=== PATIENT | female | born 2000 | race Caucasian/White ===

== ENCOUNTER 2019-07-24 09:41 | Emergency (ER) | payer BC ==
[2019-07-24 09:41] VITALS: BP 121/77
[2019-07-24] MEDS ORDERED: IV NORMAL SALINE 1000ML BAG 1,000 ML IV SCH (09:51)
[2019-07-24] MEDS ORDERED: fentaNYL PF VIAL 100 MCG/2 ML VIAL IV PRN (10:00)
[2019-07-24] MEDS ORDERED: LIDOCAINE 1%/EPI 1:100,000 20 ML VIAL. INJ ONE (10:00)
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
[2019-07-24 10:13] LABS: BASO # 0.1 x10^3/uL (0.0-0.2); BASO % 1 % (0-3); EOS # 0.3 x10^3/uL (0.0-0.7); EOS % 2 % (0-3); HEMATOCRIT 39.5 % (36.0-47.0); HEMOGLOBIN 13.4 g/dL (12.0-15.5); LYMPH # 3.1 x10^3/uL (1.0-4.8); LYMPH % 25 % (24-48); MEAN CORPUSCULAR HEMOGLOBIN 31 pg (25-35); MEAN CORPUSCULAR HGB CONC 34 g/dL (31-37); MEAN CORPUSCULAR VOLUME 92 fL (79-100); MONO # 0.7 x10^3/uL (0.0-1.1); MONO % 6 % (0-9); NEUT # 8.1 x10^3/uL (1.8-7.7); NEUT % 66 % (31-73); PLATELET COUNT 398 x10^3/uL (140-400); RED CELL DISTRIBUTION WIDTH 13.4 % (11.5-14.5); WHITE BLOOD COUNT 12.2 x10^3/uL (4.0-11.0)
[2019-07-24 10:17] LABS: BILIRUBIN,URINE NEGATIVE (NEG); CLARITY,URINE CLEAR; COLOR,URINE AMBER; NITRITE,URINE NEGATIVE (NEG); PH,URINE 7.5; PROTEIN,URINE 100 mg/dL (NEG-TRACE); UROBILINOGEN,URINE 0.2 mg/dL (0.2 mg/dL)
[2019-07-24 10:29] LABS: CALCIUM 10.2 mg/dL (8.5-10.1); CREATININE 1.4 mg/dL (0.6-1.0); GFR 47.5
--- NOTE | 2019-07-24 10:36 | RAD ---
EXAM: AP View of the chest DATE: 07/24/2019 10:07 AM INDICATION: Trauma COMPARISON: No Prior FINDINGS: Left port tip terminates over the distal SVC. The port may be disconnected from the associated tubing. The heart is not enlarged. Mediastinal and hilar contours are normal. No focal parenchymal airspace opacity. No pleural effusion or pneumothorax. IMPRESSION: Left chest port is seen although the port and associated tubing is likely disconnected. Lungs are otherwise clear. Electronically signed by: Mariano Mora MD (07/24/2019 10:33 AM) [facility]
[2019-07-24 10:37] LABS: BACTERIA,URINE 0 /HPF (0-FEW)
[2019-07-24 10:38] LABS: HYALINE CASTS, URINE MANY /HPF
[2019-07-24] MEDS ORDERED: IOHEXOL 300 MG/ML 100ML VIAL. ONE (10:39)
--- NOTE | 2019-07-24 10:39 | RAD ---
Indications: Trauma and pain 3 view study of the left wrist: No acute fracture or dislocation or lytic process is evident. The scaphoid bone appears intact. IMPRESSION: No acute fracture. 3 view right knee study: No acute fracture or dislocation or lytic process is seen. No joint effusion is seen radiographically. IMPRESSION: No acute fracture. Electronically signed by: Randal Lucero MD (07/24/2019 10:36 AM) [id number]
[2019-07-24] MEDS ORDERED: CONTRAST GIVEN. MC PRN (10:45)
[2019-07-24] MEDS ORDERED: IOHEXOL 300 MG/ML 100ML VIAL. IV ONE (10:45)
[2019-07-24 10:48] LABS: ALBUMIN 3.8 g/dL (3.4-5.0); ALBUMIN/GLOBULIN RATIO 0.9 (1.0-1.7); TOTAL BILIRUBIN 0.5 mg/dL (0.2-1.0)
--- NOTE | 2019-07-24 11:08 | RAD ---
EXAM: CT HEAD WITHOUT IV CONTRAST CLINICAL HISTORY: Trauma COMPARISON: None. TECHNIQUE: Routine CT of the head without contrast. Soft tissues and bone windows were reviewed. PQRS compliance statement - One or more of the following individualized dose reduction techniques were utilized for this study: 1. Automated exposure control 2. Adjustment of the mA and/or kV according to patient size 3. Use of iterative reconstruction technique FINDINGS: There is no evidence of hemorrhage, mass or extra-axial fluid collection. Jackson-white differentiation is maintained with no evidence of edema. There is no mass effect or shift of the intracranial structures. The ventricles, basilar cisterns and cortical sulci are normal in size and configuration for the patients stated age. The cerebellum and brainstem are unremarkable. The calvarium demonstrates no evidence of fracture or focal lesion. There is normal aeration of the visualized paranasal sinuses and mastoid air cells. The visualized portions of the orbits are normal. IMPRESSION: No evidence for acute intracranial process EXAM: CT CERVICAL SPINE WITHOUT IV CONTRAST CLINICAL HISTORY: Trauma COMPARISON: None available. TECHNIQUE: Helical CT of the cervical spine was performed. Axial, coronal and sagittal reformatted images were also performed. PQRS compliance statement - One or more of the following individualized dose reduction techniques were utilized for this study: 1. Automated exposure control 2. Adjustment of the mA and/or kV according to patient size 3. Use of iterative reconstruction technique FINDINGS: Vertebral body heights are preserved. Straightening of the normal cervical lordosis. No significant spondylolisthesis. No evidence for acute fracture. No significant central canal stenosis or neural foraminal narrowing. IMPRESSION: No acute fracture or subluxation. Electronically signed by: Mariano Mora MD (07/24/2019 11:05 AM) [facility]
--- NOTE | 2019-07-24 11:16 | RAD ---
EXAM: CT Chest, Abdomen and Pelvis with IV contrast CLINICAL HISTORY: Trauma COMPARISON: None. TECHNIQUE: Helical CT of the chest, abdomen and pelvis was performed following the administration of intravenous contrast. Axial, coronal and sagittal reformatted images were generated. ---PQRS compliance statement - One or more of the following individualized dose reduction techniques were utilized for this study: 1. Automated exposure control 2. Adjustment of the mA and/or kV according to patient size 3. Use of iterative reconstruction technique--- FINDINGS: Chest: Port-A-Cath tip terminates within the distal SVC. Heart is not enlarged. No pericardial effusion. No pleural effusion or pneumothorax. Groundglass opacities in the lower lobes likely atelectasis. No mediastinal or hilar lymphadenopathy. No axillary lymphadenopathy. Abdomen and Pelvis: No focal liver lesion. Spleen is unremarkable. Adrenal glands are normal. Pancreas is unremarkable. No focal renal lesion. No hydronephrosis. No hydroureter. Bladder is unremarkable. Moderate colonic stool content is seen. No small or large bowel dilatation. No evidence for bowel obstruction. Bones: No evidence for acute fracture. Osseous structures are grossly unremarkable. IMPRESSION: 1. No evidence for acute thoracic, abdominal or pelvic trauma. 2. Port-A-Cath is seen within the left chest. Electronically signed by: Mariano Mora MD (07/24/2019 11:13 AM) [facility]
--- NOTE | 2019-07-24 12:02 | NUR ---
Bacitracin applied to wounds.
[2019-07-24] MEDS ORDERED: BACITRACIN TOPICAL OINT PACKET. TP ONE ×2 (12:15→12:30)
[2019-07-24] MEDS ORDERED: HEPARIN PF 500 UNIT/5 ML DISP.SYRIN. IVP ONE (12:45)
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
--- NOTE | 2019-07-24 14:15 | EKG ---
[facility] [address] [place] [address] Test Date: 2019-07-24 Test Time: 10:06:18 Pat Name: THIAGO FLORES Department: Room: Gender: F Cst: : 2000 Requested By: TAYLA ARZATE Order Number: [id number] Reading MD: Measurements Intervals [place] Rate: 95 P: 0 MI: 142 QRS: 36 QRSD: 82 T: 44 QT: 390 QTc: 494 Interpretive Statements SINUS RHYTHM PROLONGED QT NO SPECIFIC ECG ABNORMALITIES RI6.01 No previous ECG available for comparison
== END 2019-07-24 13:45 | disposition home or self-care (01) ==
LOC: ER 09:41
DX: S81.011A Laceration without foreign body, right knee, initial encounter (principal); S30.1XXA Contusion of abdominal wall, initial encounter; S60.812A Abrasion of left wrist, initial encounter; S10.91XA Abrasion of unspecified part of neck, initial encounter; S40.212A Abrasion of left shoulder, initial encounter; R51 Headache; F31.9 Bipolar disorder, unspecified; V44.5XXA Car driver injured in collision with heavy transport vehicle or bus in traffic accident, initial encounter; Y93.89 Activity, other specified; Y92.488 Other paved roadways as the place of occurrence of the external cause; Y99.8 Other external cause status
CPT/HCPCS: 12002; 36415; 70450; 71045; 71260; 72125; 73110; 73562; 74177; 80053; 81001; 81025; 84484; 85025; 87086; 93005; 96374; 96375; 99285; J3010; J3490; J7030; Q9967

== ENCOUNTER 2019-08-04 17:34 | Emergency (ER) | payer BC ==
[~2019-08-04] VITALS: Ht 175.3 cm; Wt 93.9 kg
[2019-08-04 18:08] VITALS: BP 207/90
[2019-08-04] MEDS ORDERED: CEPH-264 PO (18:34)
--- NOTE | 2019-08-04 18:34 | PHYS DOC ---
Past Medical History Past Medical History: Bipolar Additional Past Medical Histor: hemochromatosis Alcohol Use: None Adult General Chief Complaint Chief Complaint: SUTURE/STAPLE REMOVAL HPI HPI Patient is a 19 year old Female who presents with Right knee sutures placed on July 24. Patient is here to have them removed. Review of Systems Review of Systems Musculoskeletal:Right knee sutures in place. Denies back pain or joint pain [] Integument:Right knee sutures. Denies rash or skin lesions [] All other systems were reviewed and found to be within normal limits, except as documented in this note. Allergies Allergies Allergies Coded Allergies Type Severity Reaction Last Updated Verified No Known Drug Allergies 07/24/19 No Physical Exam Physical Exam Constitutional: Well developed, well nourished, no acute distress, non-toxic appearance. [] Skin: Right knee suture. Warm, dry, no erythema, no rash. [] Extremities: No tenderness, no cyanosis, no clubbing, ROM intact, no edema. [] Neurologic: Alert and oriented X 3, normal motor function, normal sensory function, no focal deficits noted. [] Psychologic: Affect normal, judgement normal, mood normal. [] Current Patient Data Vital Signs Vital Signs Date Time Temp Pulse Resp B/P (MAP) Pulse Ox O2 Delivery O2 Flow Rate FiO2 08/04/19 18:08 98.2 84 16 207/90 (129) 98 Room Air 98.2 EKG EKG [] Radiology/Procedures Radiology/Procedures [] Course & Med Decision Making Course & Med Decision Making One long running suture is removed from right knee. Patient states the knee is slightly tender to palpation. There is a small area that purulent fluid of when I was pulling the suture out. No swelling or redness to the right knee. Patient is ambulatory without complication. Patient denies any fevers or increase pain. Denies numbness or tingling. Edges are approximated. I am giving her Keflex antibiotic and patient is to follow up with her primary care physician. Dragon Disclaimer Dragon Disclaimer This electronic medical record was generated, in whole or in part, using a voice recognition dictation system. Departure Departure Impression: Primary Impression: Encounter for removal of sutures Disposition: HOME, SELF-CARE Condition: STABLE Referrals: DOMINGO CACERES MD (PCP) Patient Instructions: Suture Removal Additional Instructions: Keep area clean and dry. Take antibiotic as prescribed. Follow up with primary care provider. Scripts Cephalexin (KEFLEX) 500 Mg Capsule 1 CAP PO TID for 7 Days, #21 CAP 0 Refills Prov: LANNY BEAR APRN 08/04/19 LANNY BEAR APRN Aug 04, 2019 18:34
== END 2019-08-04 18:39 | disposition home or self-care (01) ==
LOC: ER 17:34
DX: S81.011D Laceration without foreign body, right knee, subsequent encounter (principal); F31.9 Bipolar disorder, unspecified; X58.XXXD Exposure to other specified factors, subsequent encounter
CPT/HCPCS: 99283

== ENCOUNTER 2021-05-05 08:45 | Emergency (ER) | payer BC ==
[~2021-05-05] VITALS: Ht 175.3 cm; Wt 145.0 kg
[~2021-05-05 08:45] MED LIST: CEPH-264 PO
[2021-05-05 09:42] LABS: CALCIUM 9.4 mg/dL (8.5-10.1); CREATININE 1.2 mg/dL (0.6-1.0); GFR 55.7; POTASSIUM 4.3 mmol/L (3.5-5.1)
[2021-05-05 09:50] LABS: ALBUMIN 3.8 g/dL (3.4-5.0); ALBUMIN/GLOBULIN RATIO 0.9 (1.0-1.7); BASO # 0.1 x10^3/uL (0.0-0.2); BASO % 1 % (0-3); EOS # 0.3 x10^3/uL (0.0-0.7); EOS % 3 % (0-3); HEMATOCRIT 39.7 % (36.0-47.0); HEMOGLOBIN 13.3 g/dL (12.0-15.5); LYMPH # 2.1 x10^3/uL (1.0-4.8); LYMPH % 22 % (24-48); MEAN CORPUSCULAR HEMOGLOBIN 29 pg (25-35); MEAN CORPUSCULAR HGB CONC 34 g/dL (31-37); MEAN CORPUSCULAR VOLUME 86 fL (79-100); MONO # 0.6 x10^3/uL (0.0-1.1); MONO % 6 % (0-9); NEUT # 6.8 x10^3/uL (1.8-7.7); NEUT % 68 % (31-73); PLATELET COUNT 466 x10^3/uL (140-400); RED BLOOD COUNT 4.62 x10^6/uL (3.50-5.40); RED CELL DISTRIBUTION WIDTH 14.7 % (11.5-14.5); TOTAL BILIRUBIN 0.4 mg/dL (0.2-1.0)
--- NOTE | 2021-05-05 10:11 | RAD ---
CT HEAD/BRAIN WO History: Reason: syncope/shaking episode / Spl. Instructions: / History: Comparison: July 24, 2019 Technique: Noncontrast CT imaging was performed of the head. Exposure: One or more of the following individualized dose reduction techniques were utilized for thi s examination: 1. Automated exposure control 2. Adjustment of the mA and/or kV according to patient size 3. Use of iterative reconstruction technique. Findings: No intracranial hemorrhage. No mass effect. No hydrocephalus. Extra-axial spaces are unremarkable. Imaged orbits are unremarkable. Imaged paranasal sinuses and mastoid air cells are clear. No acute ca lvarial fracture. Impression: 1. No acute intracranial abnormality. Electronically signed by: Philip Escalante DO (05/05/2021 10:08 AM) [id number]
[2021-05-05 10:30] VITALS: BP 121/69
[2021-05-05 10:30] LABS: BILIRUBIN,URINE NEGATIVE (NEG); CLARITY,URINE CLEAR; COLOR,URINE YELLOW; NITRITE,URINE NEGATIVE (NEG); PROTEIN,URINE NEGATIVE (NEG-TRACE); UROBILINOGEN,URINE 0.2 mg/dL (0.2 mg/dL)
[2021-05-05] MEDS ORDERED: LORazepam 0.5 MG TABLET PO ONE (10:45)
--- NOTE | 2021-05-05 10:50 | PHYS DOC ---
Past Medical History Past Medical History: Bipolar Additional Past Medical Histor: hemochromatosis Past Surgical History: Tonsillectomy Additional Past Surgical Histo: SINUS Smoking Status: Never Smoker Alcohol Use: None General Adult EDM: Chief Complaint: OTHER COMPLAINTS HPI: HPI: 21-year-old female presented emerge department today with an episode of waking up being conscious shaking feeling like she was in her dream that she was having before she woke up. She then came out of it and now is feeling fine. She is wondering whether she had a seizure. She had something similar happen 2 to 3 weeks ago. She denies biting her tongue loss of consciousness loss of bowel or bladder. She denies hitting her head as she was in bed with this happened. Onset today. Location generalized. Duration constant. No leaving factors spontaneously resolved. Review of systems negative for chest pain shortness of breath abdominal pain vomiting diaphoresis fevers chills headache neck stiffness nuchal rigidity. All other review of systems negative. Heart Score: C/O Chest Pain: No Risk Factors: Risk Factors: DM, Current or recent (<one month) smoker, HTN, HLP, family history of CAD, obesity. Risk Scores: Score 0 - 3: 2.5% MACE over next 6 weeks - Discharge Home Score 4 - 6: 20.3% MACE over next 6 weeks - Admit for Clinical Observation Score 7 - 10: 72.7% MACE over next 6 weeks - Early Invasive Strategies Current Medications: Current Medications Medications (Trade) Dose Ordered Sig/Robby Start Time Stop Time Status Last Admin Dose Admin Lorazepam (Ativan) 1 mg STK-MED ONCE 05/05/21 10:35 05/05/21 10:36 DC Allergies: Allergies: Allergies Coded Allergies Type Severity Reaction Last Updated Verified hydroxyzine Allergy Severe lip swelling 05/05/21 Yes Physical Exam: PE: Constitutional: Well developed, well nourished, no acute distress, non-toxic appearance. [] HENT: Normocephalic, atraumatic, bilateral external ears normal, oropharynx moist, no oral exudates, nose normal. [] Eyes: PERRLA, EOMI, conjunctiva normal, no discharge. [] Neck: Normal range of motion, no tenderness, supple, no stridor. [] Cardiovascular:Heart rate regular rhythm, no murmur [] Lungs & Thorax: Bilateral breath sounds clear to auscultation [] Abdomen: Bowel sounds normal, soft, no tenderness, no masses, no pulsatile masses. [] Skin: Warm, dry, no erythema, no rash. [] Back: No tenderness, no CVA tenderness. [] Extremities: No tenderness, no cyanosis, no clubbing, ROM intact, no edema. [] Neurologic: Mental status: Awake oriented and alert x3 Cranial nerves: Extraocular movements intact, eyebrows consuelo bilaterally, smile symmetric, uvula elevation nl, shoulder shrug intact bilaterally, tongue protrusion normal Clear speech. Sensation: equal and normal in all extremities Strength: 5/5 in upper and lower extremities bilaterally Psychologic: Affect normal, judgement normal, mood normal. [] Current Patient Data: Labs: Laboratory Tests Test 05/05/21 09:26 05/05/21 09:28 POC Urine HCG, Qualitative Hcg negative (Negative) White Blood Count 10.0 x10^3/uL (4.0-11.0) Red Blood Count 4.62 x10^6/uL (3.50-5.40) Hemoglobin 13.3 g/dL (12.0-15.5) Hematocrit 39.7 % (36.0-47.0) Mean Corpuscular Volume 86 fL (79-100) Mean Corpuscular Hemoglobin 29 pg (25-35) Mean Corpuscular Hemoglobin Concent 34 g/dL (31-37) Red Cell Distribution Width 14.7 % (11.5-14.5) H Platelet Count 466 x10^3/uL (140-400) H Neutrophils (%) (Auto) 68 % (31-73) Lymphocytes (%) (Auto) 22 % (24-48) L Monocytes (%) (Auto) 6 % (0-9) Eosinophils (%) (Auto) 3 % (0-3) Basophils (%) (Auto) 1 % (0-3) Neutrophils # (Auto) 6.8 x10^3/uL (1.8-7.7) Lymphocytes # (Auto) 2.1 x10^3/uL (1.0-4.8) Monocytes # (Auto) 0.6 x10^3/uL (0.0-1.1) Eosinophils # (Auto) 0.3 x10^3/uL (0.0-0.7) Basophils # (Auto) 0.1 x10^3/uL (0.0-0.2) Sodium Level 138 mmol/L (136-145) Potassium Level 4.3 mmol/L (3.5-5.1) Chloride Level 102 mmol/L (98-107) Carbon Dioxide Level 27 mmol/L (21-32) Anion Gap 9 (6-14) Blood Urea Nitrogen 14 mg/dL (7-20) Creatinine 1.2 mg/dL (0.6-1.0) H Estimated GFR (Cockcroft-Gault) 55.7 BUN/Creatinine Ratio 12 (6-20) Glucose Level 120 mg/dL (70-99) H Calcium Level 9.4 mg/dL (8.5-10.1) Total Bilirubin 0.4 mg/dL (0.2-1.0) Aspartate Amino Transferase (AST) 25 U/L (15-37) Alanine Aminotransferase (ALT) 32 U/L (14-59) Alkaline Phosphatase 107 U/L (46-116) Troponin I Quantitative < 0.017 ng/mL (0.000-0.055) Total Protein 8.0 g/dL (6.4-8.2) Albumin 3.8 g/dL (3.4-5.0) Albumin/Globulin Ratio 0.9 (1.0-1.7) L Laboratory Tests 05/05/21 09:28 Laboratory Tests 05/05/21 09:28 Vital Signs: Vital Signs Date Time Temp Pulse Resp B/P (MAP) Pulse Ox O2 Delivery O2 Flow Rate FiO2 05/05/21 09:09 98.7 83 16 137/87 (129) 94 Room Air 98.7 EKG: EKG: [] Radiology/Procedures: Radiology/Procedures: [] Course & Med Decision Making: Course & Med Decision Making Pertinent Labs and Imaging studies reviewed. (See chart for details) [] 21-year-old female presenting with an episode of twitching. On arrival the patient is afebrile with a normal heart rate. Breathing comfortably on room air. Blood pressure within normal limits. On physical exam the patient has a normal neurologic physical exam. The patient actually had 1 of these episodes in the emergency department. She was awake conscious with minor twitching able to respond. We were able to give her an oral Ativan which improved her symptoms. CBC shows a thrombocytosis. WBC and hemoglobin within normal limits. Chemistry panel shows a creatinine of 1.2. Troponin within normal limits. Otherwise chemistry panel unremarkable. negative. No acute intracranial findings on CT head. EKG reviewed by myself shows a sinus rhythm with a regular rate. ST segments congruent. Not suggestive of acute ischemia. On reevaluation the patient is resting comfortably with a normal neurologic exam. We will discharge to follow-up with her PCP in 1 to 2 days and an outpatient neurology consultation in 3 to 5 days. Sintia Disclaimer: Sintia Disclaimer: This electronic medical record was generated, in whole or in part, using a voice recognition dictation system. Departure Departure Impression: Primary Impression: Twitching Additional Impression: Shaking Disposition: 01 HOME / SELF CARE / HOMELESS Condition: STABLE Referrals: TAYLOR VALLE (PCP) TASHI URBAN MD neurology Patient Instructions: Medical Screening Exam Additional Instructions: EMERGENCY DEPARTMENT GENERAL DISCHARGE INSTRUCTIONS Follow-up with your primary physician in 1 to 2 days. Follow-up with neurology (Dr. Alcantara.) in 3 to 5 days. Return to the emergency department if you have any new or concerning findings. Thank you for coming to [facility] Emergency Department (ED) today and trusting us with you care. We trust that you had a positive experience in our Emergency Department. If you wish to speak to the department management, you may call the Director at [phone]. Follow up is important in emergency/acute care visits. This condition should be evaluated by your primary care physician and any necessary consulting services for continued management within a few days (1-2) after discharge. Return to the emergency department if you have any new or concerning symptoms including but not limited to fever, chills, nausea, vomiting, intractable pain, any new rashes, chest pain, shortness of breath, uncontrolled bleeding, difficulty breathing, and/or vision loss. 1. Do you have a private Doctor? If you do not have a private doctor, please ask for a resource list of physicians or clinics that may be able to assist you with follow up care. 2. If a lab test or culture has been done and does not come back immediately, your results will be reviewed and you will be notified if you need a change in treatment. 3. Your care today has been supervised by a physician who is specially trained in emergency care. Many problems require more than one evaluation for a com plete diagnosis and treatment. We recommend that you schedule your follow up appointment as recommended to ensure complete treatment of you illness or injury. If you are unable to obtain follow up care and continue to have a problem, or if your condition worsens, we recommend that you return to the ED. 4. We are not able to safely determine your condition over the phone nor are we able to give sound medical advice over the phone. For these safety reasons, if you call for medical advice we will ask you to come to the ED for further evaluation. IF YOUR SYMPTOMS WORSEN OR NEW SYMPTOMS DEVELOP, OR YOU HAVE CONCERNS ABOUT YOUR CONDITION; OR IF YOUR CONDITION WORSENS WHILE YOU ARE WAITING FOR YOUR FOLLOW UP APPOINTMENT; EITHER CONTACT YOUR PRIMARY CARE DOCTOR, THE PHYSICIAN WHOSE NAME AND NUMBER YOU WERE GIVEN, OR RETURN TO THE ED IMMEDIATELY. CHANTEL RIOS MD May 05, 2021 10:50
[2021-05-05 11:00] LABS: AMORPHOUS SEDIMENT,UR PRESENT /HPF; BACTERIA,URINE FEW /HPF (0-FEW); RBC,URINE 0 /HPF (0-2)
== END 2021-05-05 11:27 | disposition home or self-care (01) ==
LOC: ER 08:45
DX: R25.1 Tremor, unspecified (principal); R25.3 Fasciculation; F31.9 Bipolar disorder, unspecified; Z88.8 Allergy status to other drugs, medicaments and biological substances
CPT/HCPCS: 36415; 70450; 80053; 81001; 81025; 84484; 85025; 87086; 93005; 99285-25

== ENCOUNTER 2021-05-16 14:07 | Emergency (ER) | payer BC ==
[~2021-05-16] VITALS: Ht 175.3 cm; Wt 144.9 kg
--- NOTE | 2021-05-16 14:34 | ED.ADGEN ---
Past Medical History Past Medical History: Bipolar Additional Past Medical Histor: hemochromatosis Past Surgical History: Tonsillectomy Additional Past Surgical Histo: SINUS Smoking Status: Never Smoker Alcohol Use: None General Adult EDM: Chief Complaint: PSYCH EVALUATION HPI: HPI: Patient is a 21-year-old female who presents to the emergency room with suicidal and homicidal ideations. Patient has had a history of this previously but has been doing well since October. She started to having worsening symptoms over the last few days. She has been staying with friends and she is concerned about the homicidal thoughts that she is having about the people that she cares about. Review of Systems: Review of Systems: Complete ROS is negative unless otherwise documented in HPI Allergies: Allergies: Allergies Coded Allergies Type Severity Reaction Last Updated Verified lisdexamfetamine Allergy Severe Swelling 05/16/21 Yes Physical Exam: PE: General: Awake, alert, NAD. Well Nourished, well hydrated. Cooperative HEENT: Atraumatic, EOMI, PERRL, airway patent, moist oral mucosa Neck: Supple, trachea midline Respiratory: CTA bilaterally, normal effort, no wheezing/crackles CV: RRR, no murmur, cap refill <2 GI: Soft, nondistended, nontender, no masses MSK: No obvious deformities Skin: Warm, dry, intact Neuro: A&O x3, speech NL, sensory and motor grossly intact, no focal deficits Psych: Normal affect, normal mood, suicidal and homicidal Current Patient Data: Labs: Laboratory Tests Test 05/16/21 14:28 05/16/21 16:20 05/16/21 16:30 SARS-CoV-2 Antigen (Rapid) Negative (NEGATIVE) Urine Collection Type Void Urine Color Yellow Urine Clarity Clear Urine pH 6.5 (<5.0-8.0) Urine Specific [place] 1.015 (1.000-1.030) Urine Protein Negative mg/dL (NEG-TRACE) Urine Glucose (UA) Negative mg/dL (NEG) Urine Ketones (Stick) Negative mg/dL (NEG) Urine Blood Moderate (NEG) Urine Nitrite Negative (NEG) Urine Bilirubin Negative (NEG) Urine Urobilinogen Dipstick 0.2 mg/dL (0.2 mg/dL) Urine Leukocyte Esterase Large (NEG) Urine RBC 20-40 /HPF (0-2) Urine WBC Tntc /HPF (0-4) Urine Squamous Epithelial Cells Few /LPF Urine Bacteria Mod /HPF (0-FEW) Urine Opiates Screen Neg (NEG) Urine Methadone Screen Neg (NEG) Urine Barbiturates Neg (NEG) Urine Phencyclidine Screen Neg (NEG) Urine Amphetamine/Methamphetamine Neg (NEG) Urine Benzodiazepines Screen Neg (NEG) Urine Cocaine Screen Neg (NEG) Urine Cannabinoids Screen Neg (NEG) Urine Ethyl Alcohol Neg (NEG) White Blood Count 10.3 x10^3/uL (4.0-11.0) Red Blood Count 4.57 x10^6/uL (3.50-5.40) Hemoglobin 13.1 g/dL (12.0-15.5) Hematocrit 39.1 % (36.0-47.0) Mean Corpuscular Volume 86 fL (79-100) Mean Corpuscular Hemoglobin 29 pg (25-35) Mean Corpuscular Hemoglobin Concent 34 g/dL (31-37) Red Cell Distribution Width 15.0 % (11.5-14.5) H Platelet Count 471 x10^3/uL (140-400) H Neutrophils (%) (Auto) 74 % (31-73) H Lymphocytes (%) (Auto) 18 % (24-48) L Monocytes (%) (Auto) 6 % (0-9) Eosinophils (%) (Auto) 1 % (0-3) Basophils (%) (Auto) 1 % (0-3) Neutrophils # (Auto) 7.6 x10^3/uL (1.8-7.7) Lymphocytes # (Auto) 1.9 x10^3/uL (1.0-4.8) Monocytes # (Auto) 0.6 x10^3/uL (0.0-1.1) Eosinophils # (Auto) 0.1 x10^3/uL (0.0-0.7) Basophils # (Auto) 0.1 x10^3/uL (0.0-0.2) Sodium Level 137 mmol/L (136-145) Potassium Level 4.5 mmol/L (3.5-5.1) Chloride Level 101 mmol/L (98-107) Carbon Dioxide Level 26 mmol/L (21-32) Anion Gap 10 (6-14) Blood Urea Nitrogen 9 mg/dL (7-20) Creatinine 1.2 mg/dL (0.6-1.0) H Estimated GFR (Cockcroft-Gault) 55.7 Glucose Level 94 mg/dL (70-99) Calcium Level 10.0 mg/dL (8.5-10.1) Ethyl Alcohol Level < 10 mg/dL (0-10) Laboratory Tests 05/16/21 16:30 Laboratory Tests 05/16/21 16:30 Vital Signs: Vital Signs Date Time Temp Pulse Resp B/P (MAP) Pulse Ox O2 Delivery O2 Flow Rate FiO2 05/16/21 17:45 78 16 134/71 (92) 97 Room Air 05/16/21 14:20 98.6 98.6 EKG: EKG: [] Heart Score: C/O Chest Pain: N/A Risk Factors: Risk Factors: DM, Current or recent (<one month) smoker, HTN, HLP, family histo ry of CAD, obesity. Risk Scores: Score 0 - 3: 2.5% MACE over next 6 weeks - Discharge Home Score 4 - 6: 20.3% MACE over next 6 weeks - Admit for Clinical Observation Score 7 - 10: 72.7% MACE over next 6 weeks - Early Invasive Strategies Radiology/Procedures: Radiology/Procedures: [] Course & Med Decision Making: Course & Med Decision Making Pertinent Labs and Imaging studies reviewed. (See chart for details) Patient is a 21-year-old with a history of depression who presents to the Emergency Room with suicidal and homicidal ideations. Upon arrival the the Emergency Room, patient was changed into a gown and personal belongings were taken to security for safety. Patient was placed on a one-on-one. Lab work was ordered if requested by psychiatric team. PAT team was consulted for evaluation. After discussion with PAT team the decision was made to pursue inpatient. Patient is medically clear at this time. Dragon Disclaimer: Dragon Disclaimer: This electronic medical record was generated, in whole or in part, using a voice recognition dictation system. Departure Departure Impression: Primary Impression: Homicidal ideation Additional Impression: Suicidal ideation Referrals: TAYLOR VALLE (PCP) Problem Qualifiers TUSHAR SONG MD May 16, 2021 14:34
[2021-05-16 16:44] LABS: BILIRUBIN,URINE NEGATIVE (NEG); CLARITY,URINE CLEAR; COLOR,URINE YELLOW; NITRITE,URINE NEGATIVE (NEG); PH,URINE 6.5 (<5.0-8.0); PROTEIN,URINE NEGATIVE (NEG-TRACE); UROBILINOGEN,URINE 0.2 mg/dL (0.2 mg/dL)
[2021-05-16 16:52] LABS: AMPHETAMINE/METHAMPHETAMINE NEG (NEG); BARBITURATES NEG (NEG); BENZODIAZEPINES NEG (NEG); CANNABINOIDS NEG (NEG); COCAINE NEG (NEG); METHADONE NEG (NEG); OPIATES NEG (NEG); PHENCYCLIDINE NEG (NEG)
[2021-05-16 16:53] LABS: BASO # 0.1 x10^3/uL (0.0-0.2); BASO % 1 % (0-3); EOS # 0.1 x10^3/uL (0.0-0.7); EOS % 1 % (0-3); HEMATOCRIT 39.1 % (36.0-47.0); HEMOGLOBIN 13.1 g/dL (12.0-15.5); LYMPH # 1.9 x10^3/uL (1.0-4.8); LYMPH % 18 % (24-48); MEAN CORPUSCULAR HEMOGLOBIN 29 pg (25-35); MEAN CORPUSCULAR HGB CONC 34 g/dL (31-37); MEAN CORPUSCULAR VOLUME 86 fL (79-100); MONO # 0.6 x10^3/uL (0.0-1.1); MONO % 6 % (0-9); NEUT # 7.6 x10^3/uL (1.8-7.7); NEUT % 74 % (31-73); PLATELET COUNT 471 x10^3/uL (140-400); RED BLOOD COUNT 4.57 x10^6/uL (3.50-5.40); WHITE BLOOD COUNT 10.3 x10^3/uL (4.0-11.0)
[2021-05-16 16:57] LABS: BACTERIA,URINE MOD /HPF (0-FEW); RBC,URINE 20-40 /HPF (0-2); WBC,URINE TNTC /HPF (0-4)
[2021-05-16 17:00] LABS: CREATININE 1.2 mg/dL (0.6-1.0); GFR 55.7; POTASSIUM 4.5 mmol/L (3.5-5.1)
[2021-05-17 01:15] VITALS: BP 138/72
== END 2021-05-17 01:25 ==
LOC: ER 14:07 → EEVIPCON 14:07 → ER 05-17 01:25
DX: R45.851 Suicidal ideations (principal); Z20.822 Contact with and (suspected) exposure to COVID-19; R45.850 Homicidal ideations; F31.9 Bipolar disorder, unspecified; Z88.8 Allergy status to other drugs, medicaments and biological substances
CPT/HCPCS: 36415; 80048; 80307; 81001; 85025; 87426; 99285; G0480; U0003; U0005